=== PATIENT | male | born 1985 | race Two or more races ===

== ENCOUNTER 2024-05-03 19:31 | Emergency (ER) | payer OTHER ==
[~2024-05-03] VITALS: Ht 170.2 cm; Wt 95.5 kg
[2024-05-03] MEDS: ALBUTEROL SULF 2.5 MG/0.5ML(0.5%) NEB SOLN NEB ONE (20:12)
[2024-05-03] MEDS: IPRATROPIUM BROM 0.5 MG/2.5ML INH SOL NEB ONE (20:12)
[2024-05-03] MEDS: DexAMETHasone SOD PHOS 10MG/1ML VIAL INJ IM ONE (20:14)
[2024-05-03 22:06] VITALS: BP 123/81; PULSE 89; RESP 20; TEMP 98.4; O2SAT 96
== END 2024-05-03 22:09 | disposition home or self-care (01) ==
LOC: ER 19:31
DX: R06.02 Shortness of breath (principal); G47.30 Sleep apnea, unspecified
CPT/HCPCS: 71046; 94640; 96372; 99283; J1100